=== PATIENT | male | born 1965 | race Caucasian/White ===

== ENCOUNTER → 2017-01-22 | Outpatient (CLI) | payer MEDICARE ==
--- NOTE | 2017-01-22 16:47 | RADIOLOGY REPORT (SQ) ---
EXAM DESCRIPTION: ARTERIAL LOWER EXTREM BILAT COMPLETED DATE/TIME: 01/22/2017 1:51 pm REASON FOR STUDY: ULCERS L97.522 NON-PRS CHRONIC ULCER OTH PRT LEFT FOOT W FAT LAYER COMPARISON: None. TECHNIQUE: Dynamic and static rooney scale and color images acquired of the lower extremity arteries. Additional selected spectral images recorded. ABIs recorded. LIMITATIONS: None. FINDINGS: RIGHT LEG: ABIS: 0.86 to 0.93 INFLOW ARTERIES: Normal, no obstruction evident. FEMORAL ARTERIES:Multiphasic waveforms. Normal, no velocity elevation to suggest focal stenosis. Norm al color Doppler evaluation. No aneurysm. POPLITEAL ARTERY:Multiphasic waveforms. Normal, no velocity elevation to suggest focal stenosis. Norm al color Doppler evaluation. No aneurysm. PATENT TIBIOPERONEAL TRUNK AND 3 VESSEL RUNOFF: Yes, tibioperoneal trunk, anterior tibial artery, pos terior tibial artery, and peroneal arteries are patent, with multiphasic waveforms and normal velocit ies. TBI: Not performed. OTHER: No other significant finding. LEFT LEG: ABIS: Depressed, 0.42 to 0.56 INFLOW ARTERIES: There is monophasic flow in the left common femoral artery with decreased velocity s uggesting significant iliac inflow disease. FEMORAL ARTERIES:Monophasic waveforms. Normal, no velocity elevation to suggest focal stenosis. Liliana l color Doppler evaluation. No aneurysm. POPLITEAL ARTERY:Monophasic waveforms. Normal, no velocity elevation to suggest focal stenosis. Liliana l color Doppler evaluation. No aneurysm. PATENT TIBIOPERONEAL TRUNK AND 3 VESSEL RUNOFF: Yes, tibioperoneal trunk, anterior tibial artery, pos terior tibial artery, and peroneal arteries are patent. Monophasic waveforms. Patent dorsalis pedis TBI: Not performed. OTHER: No other significant finding. 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 COMMENT: OM NORMAL: Greater than 1.0 MINIMAL DISEASE: 0.9 to 1.0 CLAUDICATION: 0.5 to 0.9 SEVERE ARTERIAL DISEASE: Less than 0.5 [facility] NORMAL: Greater than 1.0 (1.2 If Heavy Calcifications) NORMAL TO MILD ISCHEMIA: 0.8 to 1.0 MODERATE ISCHEMIA: 0.4 to 0.8 SEVERE ISCHEMIA: Less than 0.4 TECHNICAL DOCUMENTATION: JOB ID: [id number] [facility] [employer] [facility]- All Rights Reserved
== END ==
LOC: SP 12:39
PROVIDERS: ATTEND Surgery
DX: L97.522 Non-pressure chronic ulcer of other part of left foot with fat layer exposed (principal)
CPT/HCPCS: 93922; 93925

== ENCOUNTER → 2017-02-12 | Outpatient (CLI) | payer MEDICARE ==
[2017-02-12 15:29] LABS: ABSOLUTE BASOPHILS # (AUTO) 0.1 10^3/uL (0.0-0.2); ABSOLUTE EOSINOPHILS # (AUTO) 0.4 10^3/uL (0.0-0.6); ABSOLUTE LYMPHOCYTES (AUTO) 2.5 10^3/uL (0.5-4.7); ABSOLUTE MONOCYTES (AUTO) 0.9 10^3/uL (0.1-1.4); ABSOLUTE NEUT (AUTO) 4.5 10^3/uL (1.7-8.2); BASOPHILS % (AUTO) 0.8 % (0-2); EOSINOPHILS % (AUTO) 4.3 % (0-6); LYMPHOCYTES % (AUTO) 30.2 % (13-45); MEAN CORPUSCULAR HEMOGLOBIN 33.5 pg (27.0-33.4); MEAN CORPUSCULAR HGB CONC 34.1 g/dL (32.0-36.0); MEAN CORPUSCULAR VOLUME 98 fl (80-97); MONOCYTES % (AUTO) 10.5 % (3-13); RED BLOOD COUNT 4.48 10^6/uL (4.35-5.55); RED CELL DISTRIBUTION WIDTH 12.6 % (11.5-14.0); SEGMENTED NEUTROPHILS % (AUTO) 54.2 % (42-78); WHITE BLOOD COUNT 8.3 10^3/uL (4.0-10.5)
[2017-02-12 15:46] LABS: ALANINE AMINOTRANSFERASE 47 U/L (21-72); ALBUMIN 4.5 g/dL (3.5-5.0); ALKALINE PHOSPHATASE 107 U/L (38-126); ANION GAP 14 (5-19); ASPARTATE AMINO TRANSFERASE 25 U/L (17-59); BILIRUBIN,DIRECT 0.4 mg/dL (0.0-0.4); BILIRUBIN,TOTAL 0.4 mg/dL (0.2-1.3); BLOOD UREA NITROGEN 16 mg/dL (7-20); CALCIUM 10.2 mg/dL (8.4-10.2); CARBON DIOXIDE 27 mmol/L (22-30); CHLORIDE 100 mmol/L (98-107); CREATININE RESULT 1.29 mg/dL (0.52-1.25); GLUCOSE 80 mg/dL (75-110); POTASSIUM 4.9 mmol/L (3.6-5.0); TOTAL PROTEIN 8.1 g/dL (6.3-8.2)
[2017-02-12 16:10] LABS: C-REACTIVE PROTEIN 8.6 mg/L (<10.0)
[2017-02-12 16:11] LABS: ERYTHROCYTE SEDIMENTATION RATE 37 mm/hr (0-20)
--- NOTE | 2017-02-12 17:04 | RADIOLOGY REPORT (SQ) ---
EXAM DESCRIPTION: FOOT LEFT COMPLETE COMPLETED DATE/TIME: 02/12/2017 2:38 pm REASON FOR STUDY: NON-PRESSURE ULCER LEFT FOOT L97.522 NON-PRS CHRONIC ULCER OTH PRT LEFT FOOT W FA T LAYER COMPARISON: None. NUMBER OF VIEWS: Three views. TECHNIQUE: AP, lateral and oblique radiographic images acquired of the left foot. LIMITATIONS: None. FINDINGS: MINERALIZATION: Normal. BONES: No acute fracture or dislocation. No worrisome bone lesions. JOINTS: Mild joint space narrowing and bony spurring at the 1st metatarsophalangeal joint. SOFT TISSUES: Diffuse forefoot soft tissue swelling. No foreign body. OTHER: No other significant finding. IMPRESSION: Forefoot soft tissue swelling. No underlying fracture. No radiopaque foreign body. No soft tissue gas. TECHNICAL DOCUMENTATION: JOB ID: [id number] 1979 [employer]- All Rights Reserved
== END ==
LOC: WC 14:04
PROVIDERS: ATTEND Surgery
DX: L97.522 Non-pressure chronic ulcer of other part of left foot with fat layer exposed (principal); M79.89 Other specified soft tissue disorders
CPT/HCPCS: 36415; 80053; 85025; 85652; 86140